=== PATIENT | female | born 1960 | race African-American/Black ===

== ENCOUNTER 2016-09-19 23:16 | Emergency (ER) | payer OTHER ==
[~2016-09-19] VITALS: Ht 154.9 cm; Wt 83.2 kg
[~2016-09-19 23:16] MED LIST: AUGMENTIN875TAB PO; CIPRO500 MG OR; FLAGYL500 MG OR; KEFLEX500 MG OR; LEVAQUIN750 MG OR; LORTAB 5 OR; MEDDOSEPAK OR; METRONIDAZOL500 MG PO; MONISTAT1 VA; NAPROSYN500 MG PO; NO MEDS; Robitussin AC OR; ULTRAM50 MG OR; ZITHROMAX250 MG PO
[2016-09-20 00:10] LABS: URINE BILIRUBIN - DIPSTICK NEGATIVE (NEGATIVE); URINE BLOOD DIPSTICK NEGATIVE (NEGATIVE); URINE CLARITY CLEAR; URINE COLOR YELLOW; URINE GLUCOSE - DIPSTICK NEGATIVE (NEGATIVE); URINE KETONE NEGATIVE (NEGATIVE); URINE LEUK ESTERASE NEGATIVE (NEGATIVE); URINE NITRITE - DIPSTICK NEGATIVE (Negative); URINE PROTEIN - DIPSTICK NEGATIVE (NEG-TRACE); URINE SPECIFIC GRAVITY <=1.005; URINE UROBILINOGEN - DIPSTICK 0.2 E.U./dL (0.2)
[2016-09-20 00:48] LABS: HEMATOCRIT 42.6 % (37.0-47.0); IMMATURE GRANULOCYTES 0.3 % (0.0-1.0); MEAN CELL VOLUME 77.7 fL CALC (80.0-100.0); MEAN CORPUSCULAR HGB 23.7 pG CALC (26.0-32.0); MEAN CORPUSCULAR HGB CONC 30.5 g/L CALC (32.0-36.0); NEUT# 7.22 thou/uL (2.00-7.15); RED BLOOD COUNT 5.48 mill/uL (4.20-5.60); RED CELL DISTRI WIDTH 14.1 % (11.5-15.5)
[2016-09-20 00:58] LABS: ALBUMIN 4.2 g/dL (3.2-5.0); ALKALINE PHOSPHATASE 101 u/l (38-126); ANION GAP 12 (6-22 (CALC)); BILIRUBIN, TOTAL 0.4 mg/dL (0.0-1.4); BUN 16 mg/dL (7-17); BUN/CREATININE RATIO 22 (12-20 (CALC)); CALCIUM 9.3 mg/dL (8.4-10.2); CARBON DIOXIDE 26 mmol/l (22-30); CHLORIDE 106 mmol/l (95-108); CREATININE 0.7 mg/dL (0.5-1.0); GFR > 60 ML/MIN (>=60 (CALC)); GFR FOR AFR.AMER. > 60 ML/MIN (>=60 (CALC)); GLUCOSE 121 mg/dL (65-105); POTASSIUM 4.1 mmol/l (3.5-5.1); SGOT/AST 16 u/l (14-36); SGPT/ALT 26 u/l (9-52); SODIUM 140 mmol/l (137-146); TOTAL PROTEIN 7.7 g/dL (6.3-8.2)
[2016-09-20 04:13] LABS: HEMOGLOBIN 11.4 g/dl (12.0-16.0); IMMATURE GRANULOCYTES 0.3 % (0.0-1.0); MEAN CELL VOLUME 78.8 fL CALC (80.0-100.0); MEAN CORPUSCULAR HGB 23.7 pG CALC (26.0-32.0); NEUT# 6.68 thou/uL (2.00-7.15); RED BLOOD COUNT 4.82 mill/uL (4.20-5.60); RED CELL DISTRI WIDTH 14.2 % (11.5-15.5)
[2016-09-20 07:43] VITALS: BP 120/67
== END 2016-09-20 07:43 | disposition home or self-care (01) | DRG 392 ==
LOC: ED 23:16
PROVIDERS: Emergency Medicine
DX: R10.9 Unspecified abdominal pain (principal); D72.829 Elevated white blood cell count, unspecified

== ENCOUNTER 2016-11-20 12:46 | Emergency (ER) | payer OTHER ==
[~2016-11-20] VITALS: Ht 154.9 cm; Wt 70.0 kg
[2016-11-20] MEDS ORDERED: NAPROSYN500 MG PO (14:11)
[2016-11-20 14:17] VITALS: BP 120/79
== END 2016-11-20 14:28 | disposition home or self-care (01) | DRG 556 ==
LOC: ED 12:46
DX: M79.672 Pain in left foot (principal); X50.1XXA Overexertion from prolonged static or awkward postures, initial encounter; Y93.89 Activity, other specified; Y92.89 Other specified places as the place of occurrence of the external cause

== ENCOUNTER 2017-02-06 01:39 | Inpatient (IN) | payer OTHER ==
[~2017-02-06] VITALS: Ht 154.9 cm; Wt 80.8 kg
[2017-02-06] MEDS ORDERED: ZOFRAN ODT4 MG PO ×2 (01:45→05:34)
[2017-02-06 02:02] LABS: HEMATOCRIT 43.2 % (37.0-47.0); HEMOGLOBIN 13.3 g/dl (12.0-16.0); IMMATURE GRANULOCYTES 0.6 % (0.0-1.0); MEAN CELL VOLUME 79.6 fL CALC (80.0-100.0); MEAN CORPUSCULAR HGB 24.5 pG CALC (26.0-32.0); MEAN CORPUSCULAR HGB CONC 30.8 g/L CALC (32.0-36.0); NEUT# 17.68 thou/uL (2.00-7.15); RED BLOOD COUNT 5.43 mill/uL (4.20-5.60)
[2017-02-06 02:25] LABS: ALBUMIN 4.4 g/dL (3.2-5.0); ALKALINE PHOSPHATASE 115 u/l (38-126); AMYLASE 85 u/l (30-110); ANION GAP 18 (6-22 (CALC)); BILIRUBIN, TOTAL 0.4 mg/dL (0.0-1.4); BUN 20 mg/dL (7-17); BUN/CREATININE RATIO 26 (12-20 (CALC)); CALCIUM 9.5 mg/dL (8.4-10.2); CARBON DIOXIDE 23 mmol/l (22-30); CHLORIDE 108 mmol/l (95-108); CREATININE 0.8 mg/dL (0.5-1.0); GFR > 60 ML/MIN (>=60 (CALC)); GFR FOR AFR.AMER. > 60 ML/MIN (>=60 (CALC)); GLUCOSE 185 mg/dL (65-105); LIPASE 130 u/l (23-300); POTASSIUM 4.8 mmol/l (3.5-5.1); SGOT/AST 21 u/l (14-36); SGPT/ALT 29 u/l (9-52); SODIUM 144 mmol/l (137-146); TOTAL PROTEIN 7.6 g/dL (6.3-8.2)
[2017-02-06 04:45] LABS: URINE BILIRUBIN - DIPSTICK NEGATIVE (NEGATIVE); URINE BLOOD DIPSTICK NEGATIVE (NEGATIVE); URINE COLOR YELLOW; URINE GLUCOSE - DIPSTICK NEGATIVE (NEGATIVE); URINE KETONE 15 mg/dL (NEGATIVE); URINE LEUK ESTERASE NEGATIVE (NEGATIVE); URINE NITRITE - DIPSTICK NEGATIVE (Negative); URINE PROTEIN - DIPSTICK NEGATIVE (NEG-TRACE); URINE UROBILINOGEN - DIPSTICK 0.2 E.U./dL (0.2)
[2017-02-06 05:20] LABS: URINE CLARITY CLEAR
[2017-02-06] MEDS ORDERED: CIPROFLOXACN500 MG PO (05:34)
[2017-02-06 11:10] VITALS: BP 109/61
[2017-02-06 12:35] LABS: BARBITURATES NEGATIVE (NEGATIVE); COCAINE NEGATIVE (NEGATIVE); METHADONE NEGATIVE (NEGATIVE); OXCYCODONE NEGATIVE (NEGATIVE); TETRAHYDROCANNABIONOL NEGATIVE (NEGATIVE); TRICYLIC ANTIDEPRESSANTS NEGATIVE (NEGATIVE)
[2017-02-06 16:30] VITALS: BP 114/60
[2017-02-06 19:07] VITALS: BP 120/73
[2017-02-06 23:55] VITALS: BP 123/71
[2017-02-06 23:58] LABS: C. DIFFICILE TOXIN A&B NEGATIVE (NEGATIVE)
[2017-02-07 04:28] VITALS: BP 123/69
[2017-02-07 06:21] LABS: HEMATOCRIT 36.3 % (37.0-47.0); HEMOGLOBIN 11.3 g/dl (12.0-16.0); IMMATURE GRANULOCYTES 0.2 % (0.0-1.0); MEAN CELL VOLUME 77.7 fL CALC (80.0-100.0); MEAN CORPUSCULAR HGB 24.2 pG CALC (26.0-32.0); MEAN CORPUSCULAR HGB CONC 31.1 g/L CALC (32.0-36.0); NEUT# 5.92 thou/uL (2.00-7.15); RED BLOOD COUNT 4.67 mill/uL (4.20-5.60)
[2017-02-07 06:24] LABS: ANION GAP 12 (6-22 (CALC)); BUN 9 mg/dL (7-17); BUN/CREATININE RATIO 14 (12-20 (CALC)); CALCIUM 8.4 mg/dL (8.4-10.2); CARBON DIOXIDE 25 mmol/l (22-30); CHLORIDE 110 mmol/l (95-108); CREATININE 0.7 mg/dL (0.5-1.0); GFR > 60 ML/MIN (>=60 (CALC)); GFR FOR AFR.AMER. > 60 ML/MIN (>=60 (CALC)); GLUCOSE 92 mg/dL (65-105); POTASSIUM 4.4 mmol/l (3.5-5.1); SODIUM 142 mmol/l (137-146)
[2017-02-07 07:30] VITALS: BP 133/84
[2017-02-07] MEDS ORDERED: METRONIDAZOL500 MG PO (09:58)
[2017-02-07] MEDS ORDERED: CIPROFLOXACN500 MG PO (09:58)
== END 2017-02-07 10:50 | disposition home or self-care (01) | DRG 872 ==
LOC: ED 01:39 → ED-I 09:54 → ED 10:11 → MS2 10:12
PROVIDERS: Emergency Medicine; ADMIT Internal Medicine; ATTEND Internal Medicine
DX: A41.9 Sepsis, unspecified organism (principal); E11.9 Type 2 diabetes mellitus without complications; K52.9 Noninfective gastroenteritis and colitis, unspecified; I10 Essential (primary) hypertension; F17.210 Nicotine dependence, cigarettes, uncomplicated
CPT/HCPCS: S0164

== ENCOUNTER 2017-02-12 15:59 | Emergency (ER) | payer SELFPAY ==
[~2017-02-12] VITALS: Ht 154.9 cm; Wt 80.0 kg
[~2017-02-12 15:59] MED LIST changes: +CIPROFLOXACN500 MG PO; +ZOFRAN ODT4 MG PO
[2017-02-12 16:51] LABS: HEMATOCRIT 41.8 % (37.0-47.0); HEMOGLOBIN 12.9 g/dl (12.0-16.0); IMMATURE GRANULOCYTES 0.4 % (0.0-1.0); MEAN CELL VOLUME 78.6 fL CALC (80.0-100.0); MEAN CORPUSCULAR HGB 24.2 pG CALC (26.0-32.0); MEAN CORPUSCULAR HGB CONC 30.9 g/L CALC (32.0-36.0); NEUT# 7.23 thou/uL (2.00-7.15); RED BLOOD COUNT 5.32 mill/uL (4.20-5.60); RED CELL DISTRI WIDTH 13.7 % (11.5-15.5)
[2017-02-12 17:08] LABS: ALBUMIN 4.5 g/dL (3.2-5.0); ALKALINE PHOSPHATASE 109 u/l (38-126); ANION GAP 18 (6-22 (CALC)); BILIRUBIN, TOTAL 0.2 mg/dL (0.0-1.4); BUN 17 mg/dL (7-17); BUN/CREATININE RATIO 20 (12-20 (CALC)); CALCIUM 9.4 mg/dL (8.4-10.2); CARBON DIOXIDE 24 mmol/l (22-30); CHLORIDE 105 mmol/l (95-108); CREATININE 0.9 mg/dL (0.5-1.0); GFR > 60 ML/MIN (>=60 (CALC)); GFR FOR AFR.AMER. > 60 ML/MIN (>=60 (CALC)); GLUCOSE 99 mg/dL (65-105); POTASSIUM 4.4 mmol/l (3.5-5.1); SGOT/AST 46 u/l (14-36); SGPT/ALT 73 u/l (9-52); SODIUM 142 mmol/l (137-146); TOTAL PROTEIN 7.9 g/dL (6.3-8.2)
[2017-02-12 17:20] LABS: MYOGLOBIN 30 ng/mL (0 - 62)
[2017-02-12 17:46] VITALS: BP 106/76
== END 2017-02-12 17:45 | disposition home or self-care (01) | DRG 149 ==
LOC: ED 15:59
PROVIDERS: Emergency Medicine
DX: R42 Dizziness and giddiness (principal); F17.210 Nicotine dependence, cigarettes, uncomplicated

== ENCOUNTER 2018-03-25 13:20 | Emergency (ER) | payer SELFPAY ==
[~2018-03-25] VITALS: Ht 154.9 cm; Wt 72.0 kg
[2018-03-25 14:43] LABS: HEMATOCRIT 45.6 % (37.0-47.0); HEMOGLOBIN 13.8 g/dl (12.0-16.0); IMMATURE GRANULOCYTES 0.3 % (0.0-5.0); MEAN CORPUSCULAR HGB 23.9 pG CALC (26.0-32.0); MEAN CORPUSCULAR HGB CONC 30.3 g/L CALC (32.0-36.0); NEUT# 6.07 thou/uL (2.00-7.15); RED BLOOD COUNT 5.77 mill/uL (4.20-5.60); RED CELL DISTRI WIDTH 14.5 % (11.5-15.5)
[2018-03-25 15:00] LABS: ALBUMIN 4.1 g/dL (3.2-5.0); ALKALINE PHOSPHATASE 100 u/l (38-126); ANION GAP 14 (6-22 (CALC)); BILIRUBIN, TOTAL 0.2 mg/dL (0.0-1.4); BUN 14 mg/dL (7-17); BUN/CREATININE RATIO 14 (12-20 (CALC)); CARBON DIOXIDE 28 mmol/l (22-30); CHLORIDE 106 mmol/l (95-108); GFR 57 ML/MIN (>=60 (CALC)); GFR FOR AFR.AMER. > 60 ML/MIN (>=60 (CALC)); POTASSIUM 4.2 mmol/l (3.5-5.1); SGOT/AST 18 u/l (14-36); SODIUM 143 mmol/l (137-146); TOTAL PROTEIN 7.2 g/dL (6.3-8.2)
[2018-03-25] MEDS ORDERED: AMOXICILLIN500 MG PO (15:56)
[2018-03-25] MEDS ORDERED: DELTASONE20 MG PO (15:56)
[2018-03-25] MEDS ORDERED: TORADOL PO (15:56)
[2018-03-25 16:04] VITALS: BP 156/97
== END 2018-03-25 16:12 | disposition home or self-care (01) | DRG 153 ==
LOC: ED 13:20
PROVIDERS: Emergency Medicine
DX: J02.9 Acute pharyngitis, unspecified (principal); F17.210 Nicotine dependence, cigarettes, uncomplicated
CPT/HCPCS: Q9967

== ENCOUNTER 2018-05-30 22:13 | Emergency (ER) | payer SELFPAY ==
[~2018-05-30] VITALS: Ht 154.9 cm; Wt 77.2 kg
[~2018-05-30 22:13] MED LIST changes: +AMOXICILLIN500 MG PO; +DELTASONE20 MG PO; +TORADOL PO
[2018-05-30 22:55] LABS: GFR > 60 ML/MIN (>=60 (CALC)); GFR FOR AFR.AMER. > 60 ML/MIN (>=60 (CALC))
[2018-05-30 22:57] LABS: HEMOGLOBIN 12.4 g/dl (12.0-16.0); IMMATURE GRANULOCYTES 0.4 % (0.0-5.0); MEAN CELL VOLUME 78.1 fL CALC (80.0-100.0); MEAN CORPUSCULAR HGB 23.6 pG CALC (26.0-32.0); MEAN CORPUSCULAR HGB CONC 30.2 g/L CALC (32.0-36.0); NEUT# 11.14 thou/uL (2.00-7.15); RED BLOOD COUNT 5.25 mill/uL (4.20-5.60); RED CELL DISTRI WIDTH 14.5 % (11.5-15.5)
[2018-05-30 23:13] LABS: ALBUMIN 4.4 g/dL (3.2-5.0); ALKALINE PHOSPHATASE 110 u/l (38-126); ANION GAP 13 (6-22 (CALC)); BILIRUBIN, TOTAL 0.4 mg/dL (0.0-1.4); BUN 12 mg/dL (7-17); BUN/CREATININE RATIO 14 (12-20 (CALC)); CARBON DIOXIDE 27 mmol/l (22-30); CHLORIDE 106 mmol/l (95-108); CREATININE 0.8 mg/dL (0.5-1.0); GFR > 60 ML/MIN (>=60 (CALC)); GFR FOR AFR.AMER. > 60 ML/MIN (>=60 (CALC)); POTASSIUM 3.9 mmol/l (3.5-5.1); SGOT/AST 25 u/l (14-36); SODIUM 143 mmol/l (137-146); TOTAL PROTEIN 8.1 g/dL (6.3-8.2)
[2018-05-30 23:14] LABS: ACT PARTIAL THROMBO TIME 24.3 SECONDS (20.0-32.5); INTERNATIONAL NORMALIZED RATIO 0.9 RATIO (0.7-1.3); PROTHROMBIN TIME 9.8 SECONDS (9.0-12.5)
[2018-05-30 23:25] LABS: MYOGLOBIN 29 ng/mL (0 - 62)
[2018-05-31 00:17] LABS: URINE BILIRUBIN - DIPSTICK NEGATIVE (NEGATIVE); URINE BLOOD DIPSTICK NEGATIVE (NEGATIVE); URINE COLOR YELLOW; URINE GLUCOSE - DIPSTICK NEGATIVE (NEGATIVE); URINE KETONE NEGATIVE (NEGATIVE); URINE LEUK ESTERASE NEGATIVE (NEGATIVE); URINE NITRITE - DIPSTICK NEGATIVE (Negative); URINE PH 6.5 (4.5-8.0); URINE PROTEIN - DIPSTICK NEGATIVE (NEG-TRACE); URINE UROBILINOGEN - DIPSTICK 0.2 E.U./dL (0.2)
[2018-05-31 00:22] LABS: BARBITURATES NEGATIVE (NEGATIVE); COCAINE POSITIVE (NEGATIVE); METHADONE NEGATIVE (NEGATIVE); OXCYCODONE NEGATIVE (NEGATIVE); TRICYLIC ANTIDEPRESSANTS NEGATIVE (NEGATIVE)
[2018-05-31 00:23] LABS: TETRAHYDROCANNABIONOL NEGATIVE (NEGATIVE)
[2018-05-31 00:51] VITALS: BP 156/71
== END 2018-05-31 00:50 | disposition left against medical advice (07) | DRG 93 ==
LOC: ED 22:13
PROVIDERS: Emergency Medicine
DX: R20.0 Anesthesia of skin (principal); I10 Essential (primary) hypertension; F14.10 Cocaine abuse, uncomplicated; F17.210 Nicotine dependence, cigarettes, uncomplicated; Z91.19 Patient's noncompliance with other medical treatment and regimen

== ENCOUNTER 2018-09-21 14:43 | Emergency (ER) | payer SELFPAY ==
[~2018-09-21] VITALS: Ht 154.9 cm; Wt 70.0 kg
[2018-09-21 15:07] LABS: URINE BLOOD DIPSTICK NEGATIVE (NEGATIVE); URINE COLOR YELLOW; URINE GLUCOSE - DIPSTICK NEGATIVE (NEGATIVE); URINE KETONE NEGATIVE (NEGATIVE); URINE LEUK ESTERASE NEGATIVE (NEGATIVE); URINE NITRITE - DIPSTICK NEGATIVE (Negative); URINE PROTEIN - DIPSTICK 30 mg/dL (NEG-TRACE); URINE SPECIFIC GRAVITY >=1.030; URINE UROBILINOGEN - DIPSTICK 0.2 E.U./dL (0.2)
[2018-09-21 15:14] LABS: URINE BILIRUBIN - DIPSTICK NEGATIVE (NEGATIVE)
[2018-09-21 15:17] LABS: URINE RBC 0-2 RBC/hpf (0-5); URINE SQUAMOUS EPITHELIAL CELL FEW EPI/hpf (0-FEW)
[2018-09-21] MEDS ORDERED: PYRIDIUM200 MG PO (15:46)
[2018-09-21] MEDS ORDERED: DIFLUCAN100 M1 PO (15:46)
[2018-09-21] MEDS ORDERED: CIPROFLOXACN500 MG PO (15:46)
[2018-09-21 15:50] VITALS: BP 137/74
== END 2018-09-21 15:53 | disposition home or self-care (01) | DRG 690 ==
LOC: ED 14:43
DX: N39.0 Urinary tract infection, site not specified (principal); B37.49 Other urogenital candidiasis; F17.200 Nicotine dependence, unspecified, uncomplicated

== ENCOUNTER 2019-11-11 18:01 | Emergency (ER) | payer OTHER ==
[~2019-11-11] VITALS: Ht 154.9 cm; Wt 74.0 kg
[~2019-11-11 18:01] MED LIST changes: +DIFLUCAN100 M1 PO; +PYRIDIUM200 MG PO
[2019-11-11 18:53] LABS: HEMOGLOBIN 12.5 g/dl (12.0-16.0); IMMATURE GRANULOCYTES 0.2 % (0.0-5.0); MEAN CELL VOLUME 78.8 fL CALC (80.0-100.0); MEAN CORPUSCULAR HGB 23.5 pG CALC (26.0-32.0); MEAN CORPUSCULAR HGB CONC 29.8 g/dL CAL (32.0-36.0); NEUT# 6.69 thou/uL (2.00-7.15); RED BLOOD COUNT 5.33 mill/uL (4.20-5.60); RED CELL DISTRI WIDTH 14.5 % (11.5-15.5)
[2019-11-11 19:09] LABS: URINE BILIRUBIN - DIPSTICK NEGATIVE (NEGATIVE); URINE BLOOD DIPSTICK NEGATIVE (NEGATIVE); URINE COLOR YELLOW; URINE GLUCOSE - DIPSTICK NEGATIVE (NEGATIVE); URINE KETONE NEGATIVE (NEGATIVE); URINE LEUK ESTERASE NEGATIVE (NEGATIVE); URINE NITRITE - DIPSTICK NEGATIVE (Negative); URINE PH 5.5 (4.5-8.0); URINE PROTEIN - DIPSTICK NEGATIVE (NEG-TRACE); URINE SPECIFIC GRAVITY >=1.030; URINE UROBILINOGEN - DIPSTICK 0.2 E.U./dL (0.2)
[2019-11-11 19:10] LABS: ALBUMIN 3.9 g/dL (3.2-5.0); ALKALINE PHOSPHATASE 115 u/l (38-126); ANION GAP 12 (6-22 (CALC)); BILIRUBIN, TOTAL 0.3 mg/dL (0.0-1.4); BUN 11 mg/dL (7-17); BUN/CREATININE RATIO 18 (12-20 (CALC)); CARBON DIOXIDE 25 mmol/l (22-30); CHLORIDE 106 mmol/l (95-108); CREATININE 0.6 mg/dL (0.5-1.0); GFR > 60 ML/MIN (>=60 (CALC)); GFR FOR AFR.AMER. > 60 ML/MIN (>=60 (CALC)); POTASSIUM 4.5 mmol/l (3.5-5.1); SGOT/AST 22 u/l (14-36); SODIUM 138 mmol/l (137-146); TOTAL PROTEIN 7.1 g/dL (6.3-8.2)
[2019-11-11 19:22] LABS: MYOGLOBIN 15 ng/mL (0 - 62)
[2019-11-11 20:00] VITALS: BP 155/72
== END 2019-11-11 20:40 | disposition home or self-care (01) ==
LOC: ED 18:01
PROVIDERS: Emergency Medicine
DX: R42 Dizziness and giddiness (principal); F17.200 Nicotine dependence, unspecified, uncomplicated; F12.10 Cannabis abuse, uncomplicated

== ENCOUNTER 2021-04-30 10:45 | Emergency (ER) | payer MEDICAID ==
[~2021-04-30] VITALS: Ht 154.9 cm; Wt 73.0 kg
[2021-04-30 10:55] VITALS: BP 147/73
[2021-04-30 11:00] VITALS: BP 134/68
[2021-04-30] MEDS ORDERED: NORVASC5 M1 PO (11:10)
[2021-04-30] MEDS ORDERED: PAIN MED (11:11)
[2021-04-30 11:23] VITALS: BP 129/76
[2021-04-30 11:30] VITALS: BP 131/68
[2021-04-30 12:02] LABS: URINE BILIRUBIN - DIPSTICK NEGATIVE (NEGATIVE); URINE BLOOD DIPSTICK NEGATIVE (NEGATIVE); URINE COLOR YELLOW; URINE GLUCOSE - DIPSTICK NEGATIVE (NEGATIVE); URINE KETONE NEGATIVE (NEGATIVE); URINE LEUK ESTERASE NEGATIVE (NEGATIVE); URINE PH 5.5 (4.5-8.0); URINE PROTEIN - DIPSTICK NEGATIVE (NEG-TRACE); URINE SPECIFIC GRAVITY 1.025; URINE UROBILINOGEN - DIPSTICK 0.2 E.U./dL (0.2)
[2021-04-30 12:03] LABS: URINE NITRITE - DIPSTICK NEGATIVE (Negative)
[2021-04-30] MEDS ORDERED: DOXYCYCL HYC100 M4 PO (12:24)
[2021-04-30] MEDS ORDERED: METRONIDAZOLE500 MG PO (12:24)
[2021-04-30 12:57] VITALS: BP 131/68
[2021-04-30] MEDS ORDERED: METOPROLOL TART50 MG PO (13:24)
== END 2021-04-30 13:18 | disposition home or self-care (01) ==
LOC: ED 10:45
PROVIDERS: Family Medicine
DX: A59.01 Trichomonal vulvovaginitis (principal); I10 Essential (primary) hypertension; F17.200 Nicotine dependence, unspecified, uncomplicated
CPT/HCPCS: J0561

== ENCOUNTER 2021-05-11 01:52 | Emergency (ER) | payer MEDICAID ==
[~2021-05-11] VITALS: Ht 154.9 cm; Wt 72.0 kg
[~2021-05-11 01:52] MED LIST changes: +DOXYCYCL HYC100 M4 PO; +METOPROLOL TART50 MG PO; +METRONIDAZOLE500 MG PO; +NORVASC5 M1 PO; +PAIN MED
[2021-05-11 02:01] VITALS: BP 134/73
[2021-05-11 02:29] LABS: HEMATOCRIT 42.5 % (37.0-47.0); HEMOGLOBIN 12.9 g/dl (12.0-16.0); IMMATURE GRANULOCYTES 0.6 % (0.0-5.0); MEAN CELL VOLUME 79.3 fL CALC (80.0-100.0); MEAN CORPUSCULAR HGB 24.1 pG CALC (26.0-32.0); MEAN CORPUSCULAR HGB CONC 30.4 g/dL CAL (32.0-36.0); NEUT# 8.13 thou/uL (2.00-7.15); RED BLOOD COUNT 5.36 mill/uL (4.20-5.60); RED CELL DISTRI WIDTH 14.2 % (11.5-15.5)
[2021-05-11 02:48] LABS: ALBUMIN 3.6 g/dL (3.2-5.0); ALKALINE PHOSPHATASE 114 u/l (38-126); AMYLASE 116 u/l (30-110); ANION GAP 9 (6-22 (CALC)); BILIRUBIN, TOTAL 0.2 mg/dL (0.0-1.4); BUN 13 mg/dL (7-17); BUN/CREATININE RATIO 19 (12-20 (CALC)); CARBON DIOXIDE 27 mmol/l (22-30); CHLORIDE 108 mmol/l (95-108); CREATININE 0.7 mg/dL (0.5-1.0); GFR > 60 ML/MIN (>=60 (CALC)); GFR FOR AFR.AMER. > 60 ML/MIN (>=60 (CALC)); LIPASE 179 u/l (23-300); POTASSIUM 4.1 mmol/l (3.5-5.1); SGOT/AST 22 u/l (14-36); SODIUM 140 mmol/l (137-146); TOTAL PROTEIN 6.9 g/dL (6.3-8.2)
[2021-05-11 03:21] LABS: URINE BILIRUBIN - DIPSTICK NEGATIVE (NEGATIVE); URINE BLOOD DIPSTICK NEGATIVE (NEGATIVE); URINE COLOR YELLOW; URINE GLUCOSE - DIPSTICK NEGATIVE (NEGATIVE); URINE KETONE NEGATIVE (NEGATIVE); URINE LEUK ESTERASE NEGATIVE (NEGATIVE); URINE PROTEIN - DIPSTICK NEGATIVE (NEG-TRACE); URINE SPECIFIC GRAVITY 1.025; URINE UROBILINOGEN - DIPSTICK 0.2 E.U./dL (0.2)
[2021-05-11 03:22] LABS: URINE NITRITE - DIPSTICK NEGATIVE (Negative)
[2021-05-11] MEDS ORDERED: BACTRIM DS1 TAB PO (04:19)
[2021-05-11] MEDS ORDERED: NAPROXEN500 MG PO (04:19)
[2021-05-11] MEDS ORDERED: CYCLOBENZAPRINE10 MG PO (04:19)
[2021-05-11 04:31] VITALS: BP 134/73
== END 2021-05-11 04:39 | disposition home or self-care (01) ==
LOC: ED 01:52
PROVIDERS: Emergency Medicine
DX: S33.5XXA Sprain of ligaments of lumbar spine, initial encounter (principal); D72.829 Elevated white blood cell count, unspecified; I10 Essential (primary) hypertension; F17.200 Nicotine dependence, unspecified, uncomplicated; X50.0XXA Overexertion from strenuous movement or load, initial encounter; Y93.H9 Activity, other involving exterior property and land maintenance, building and construction; Z20.822 Contact with and (suspected) exposure to COVID-19

== ENCOUNTER 2021-05-21 11:07 | Emergency (ER) | payer MEDICAID ==
[~2021-05-21] VITALS: Ht 154.9 cm; Wt 73.0 kg
[~2021-05-21 11:07] MED LIST changes: +BACTRIM DS1 TAB PO; +CYCLOBENZAPRINE10 MG PO; +NAPROXEN500 MG PO
[2021-05-21 11:36] VITALS: BP 129/81
[2021-05-21 11:45] VITALS: BP 111/78
[2021-05-21 12:00] VITALS: BP 112/73
[2021-05-21] MEDS ORDERED: VISTARIL25 MG PO (12:02)
[2021-05-21] MEDS ORDERED: OMNI-PAC300 MG PO (12:02)
[2021-05-21] MEDS ORDERED: BENADRYL25 M1 PO (12:02)
[2021-05-21] MEDS ORDERED: PREDNISONE20 MG PO (12:02)
== END 2021-05-21 13:35 | disposition home or self-care (01) ==
LOC: ED 11:07
DX: L50.9 Urticaria, unspecified (principal); I10 Essential (primary) hypertension; F17.200 Nicotine dependence, unspecified, uncomplicated

== ENCOUNTER 2022-06-10 10:21 | Emergency (ER) | payer MEDICAID ==
[~2022-06-10] VITALS: Ht 154.9 cm; Wt 71.4 kg
[~2022-06-10 10:21] MED LIST changes: +BENADRYL25 M1 PO; +OMNI-PAC300 MG PO; +PREDNISONE20 MG PO; +VISTARIL25 MG PO
[2022-06-10 10:56] VITALS: BP 121/68
[2022-06-10] MEDS ORDERED: MEDDOSEPAK PO (15:00)
[2022-06-10] MEDS ORDERED: NAPROXEN500 MG PO (15:00)
[2022-06-10] MEDS ORDERED: METHOCARBAMOL500 MG PO (15:00)
== END 2022-06-10 10:56 | disposition left against medical advice (07) | DRG 951 ==
LOC: ED 10:21 → LWOBS 10:56
DX: Z53.21 Procedure and treatment not carried out due to patient leaving prior to being seen by health care provider (principal)

== ENCOUNTER 2022-06-10 13:14 | Emergency (ER) | payer MEDICAID ==
[~2022-06-10] VITALS: Ht 154.9 cm; Wt 71.0 kg
[2022-06-10 13:21] VITALS: BP 135/77
[2022-06-10 13:31] VITALS: BP 106/80
[2022-06-10 14:13] LABS: URINE BILIRUBIN - DIPSTICK NEGATIVE (NEGATIVE); URINE BLOOD DIPSTICK NEGATIVE (NEGATIVE); URINE COLOR YELLOW; URINE GLUCOSE - DIPSTICK NEGATIVE (NEGATIVE); URINE KETONE NEGATIVE (NEGATIVE); URINE LEUK ESTERASE NEGATIVE (NEGATIVE); URINE PH 5.5 (4.5-8.0); URINE PROTEIN - DIPSTICK NEGATIVE (NEG-TRACE); URINE SPECIFIC GRAVITY >=1.030; URINE UROBILINOGEN - DIPSTICK 0.2 E.U./dL (0.2)
[2022-06-10 14:14] LABS: URINE NITRITE - DIPSTICK NEGATIVE (Negative)
[2022-06-10] MEDS ORDERED: NAPROXEN500 MG PO (15:00)
[2022-06-10] MEDS ORDERED: MEDDOSEPAK PO (15:00)
[2022-06-10] MEDS ORDERED: METHOCARBAMOL500 MG PO (15:00)
[2022-06-10 15:11] VITALS: BP 106/80
== END 2022-06-10 15:20 | disposition home or self-care (01) ==
LOC: ED 13:14
PROVIDERS: Nurse Practitioner
DX: S33.5XXA Sprain of ligaments of lumbar spine, initial encounter (principal); I10 Essential (primary) hypertension; F17.200 Nicotine dependence, unspecified, uncomplicated; X50.0XXA Overexertion from strenuous movement or load, initial encounter; I11.9 Hypertensive heart disease without heart failure; E78.00 Pure hypercholesterolemia, unspecified; J44.9 Chronic obstructive pulmonary disease, unspecified; I25.10 Atherosclerotic heart disease of native coronary artery without angina pectoris

== ENCOUNTER 2024-04-05 20:38 | Emergency (ER) | payer SELFPAY ==
[~2024-04-05] VITALS: Ht 154.9 cm; Wt 70.0 kg
[~2024-04-05 20:38] MED LIST changes: +MEDDOSEPAK PO; +METHOCARBAMOL500 MG PO; +MOTRIN800 MG PO
[2024-04-05 20:44] VITALS: BP 122/64
[2024-04-05 21:00] VITALS: BP 122/54
[2024-04-05 21:16] VITALS: BP 134/68
[2024-04-05 21:30] VITALS: BP 137/70
[2024-04-05 22:16] LABS: BASO% 0.3 % (0-3); HEMATOCRIT 39.8 % (37.0-47.0); HEMOGLOBIN 12.3 g/dl (12.0-16.0); IMMATURE GRANULOCYTES 0.2 % (0.0-5.0); LYMPH% 32.6 % (15-41); MEAN CELL VOLUME 79.1 fL CALC (80.0-100.0); MEAN CORPUSCULAR HGB 24.5 pG CALC (26.0-32.0); MEAN CORPUSCULAR HGB CONC 30.9 g/dL CAL (32.0-36.0); MONO% 10.5 % (2-13); NEUT# 7.23 thou/uL (2.00-7.15); NEUT% 55.4 % (42-76); RED BLOOD COUNT 5.03 mill/uL (4.20-5.60); RED CELL DISTRI WIDTH 14.1 % (11.5-15.5)
[2024-04-05 22:33] LABS: ALBUMIN 3.7 g/dL (3.2-5.0); ALKALINE PHOSPHATASE 96 u/l (38-126); ANION GAP 8 (6-22 (CALC)); BILIRUBIN, TOTAL 0.3 mg/dL (0.02-1.3); BUN 14 mg/dL (8-23); BUN/CREATININE RATIO 15 (12-20 (CALC)); CARBON DIOXIDE 27 mmol/l (22-30); CHLORIDE 109 mmol/l (95-108); CPK 62 u/l (30-135); CREATININE 0.9 mg/dL (0.5-1.0); ESTIMATED GFR 72 ML/MIN (>=90 (CALC)); POTASSIUM 3.7 mmol/l (3.5-5.1); SGOT/AST 23 u/l (9-36); SODIUM 140 mmol/l (137-146)
[2024-04-05 23:34] VITALS: BP 137/70
== END 2024-04-05 23:35 | disposition home or self-care (01) | DRG 948 ==
LOC: ED 20:38
PROVIDERS: Family Medicine
DX: R53.1 Weakness (principal); I10 Essential (primary) hypertension; F17.200 Nicotine dependence, unspecified, uncomplicated

== ENCOUNTER 2024-04-17 12:44 | Observation (INO) | payer SELFPAY ==
[~2024-04-17] VITALS: Ht 154.9 cm; Wt 75.0 kg
[2024-04-17 13:20] LABS: BASO% 0.2 % (0-3); HEMATOCRIT 44.6 % (37.0-47.0); HEMOGLOBIN 13.6 g/dl (12.0-16.0); IMMATURE GRANULOCYTES 0.1 % (0.0-5.0); LYMPH% 26.9 % (15-41); MEAN CELL VOLUME 79.4 fL CALC (80.0-100.0); MEAN CORPUSCULAR HGB 24.2 pG CALC (26.0-32.0); MEAN CORPUSCULAR HGB CONC 30.5 g/dL CAL (32.0-36.0); MONO% 8.5 % (2-13); NEUT# 7.86 thou/uL (2.00-7.15); NEUT% 63.3 % (42-76); RED BLOOD COUNT 5.62 mill/uL (4.20-5.60); RED CELL DISTRI WIDTH 13.9 % (11.5-15.5)
[2024-04-17 13:33] LABS: ALBUMIN 4.2 g/dL (3.2-5.0); ALKALINE PHOSPHATASE 103 u/l (38-126); BUN 12 mg/dL (8-23); BUN/CREATININE RATIO 17 (12-20 (CALC)); CALCULATED LDLCHOLESTEROL 179 mg/dL (62-129 (CALC)); CARBON DIOXIDE 27 mmol/l (22-30); CHLORIDE 106 mmol/l (95-108); CHOLESTEROL HDL RATIO 5.2 (<4.4 (CALC)); CREATININE 0.7 mg/dL (0.5-1.0); ESTIMATED GFR 97 ML/MIN (>=90 (CALC)); HDL CHOLESTEROL 47 mg/dL (39.0-59.0); SGOT/AST 26 u/l (9-36); SODIUM 140 mmol/l (137-146); TOTAL CHOLESTEROL 245 mg/dl (0-199); TOTAL PROTEIN 7.5 g/dL (6.3-8.2); TOTAL TRIGLYCERIDES 96 mg/dl (0-149); VLDL CHOLESTROL 19 mg/dl (1-41 (CALC))
[2024-04-17 13:34] LABS: ANION GAP 12 (6-22 (CALC)); BILIRUBIN, TOTAL 0.5 mg/dL (0.02-1.3); POTASSIUM 4.5 mmol/l (3.5-5.1)
[2024-04-17 13:35] LABS: INTERNATIONAL NORMALIZED RATIO 0.9 RATIO (0.7-1.3)
[2024-04-17] MEDS ORDERED: DiphenhydrAMINE HCL 50 MG/ML SDV IV ONE (13:45)
[2024-04-17] MEDS ORDERED: METOCLOPRAMIDE HCL 10 MG/2 ML SDV IV ONE (13:45)
[2024-04-17 13:48] LABS: PROTHROMBIN TIME 10.2 SECONDS (9.0-12.5)
[2024-04-17 14:15] LABS: URINE BILIRUBIN - DIPSTICK Negative (NEGATIVE); URINE BLOOD DIPSTICK Negative (NEGATIVE); URINE GLUCOSE - DIPSTICK Negative (NEGATIVE); URINE KETONE Negative (NEGATIVE); URINE LEUK ESTERASE Negative (NEGATIVE); URINE NITRITE - DIPSTICK Negative (Negative); URINE PROTEIN - DIPSTICK Negative (NEG-TRACE); URINE UROBILINOGEN - DIPSTICK 0.2 E.U./dL (0.2)
[2024-04-17 14:20] LABS: URINE COLOR Yellow
[2024-04-17] MEDS ORDERED: ACETAMINOPHEN 325 MG/TAB PO PRN (15:45)
[2024-04-17] MEDS ORDERED: ONDANSETRON 4 MG/TAB ODT SL PRN (15:45)
[2024-04-17] MEDS ORDERED: SODIUM CHLORIDE 0.9% 1,000 ML IV PRN (15:45)
[2024-04-17] MEDS ORDERED: Polyethylene Glycol 3350 17 GM/PKT PO PRN (15:45)
[2024-04-17] MEDS ORDERED: ACETYL SALICYLIC ACI XX (16:50)
[2024-04-17] MEDS ORDERED: INSULIN LISPRO 100 UNITS/ML ML SC SCH (17:00)
[2024-04-17 17:19] VITALS: BP 152/76
[2024-04-17] MEDS ORDERED: ENOXAPARIN SODIUM 40 MG/0.4 ML SYR SC SCH (21:00)
[2024-04-17] MEDS ORDERED: ATORVASTATIN CALCIUM 40 MG/TAB PO SCH (21:00)
[2024-04-18] MEDS ORDERED: ASPIRIN 81 MG/TAB PO SCH (09:00)
== END 2024-04-17 17:30 | disposition left against medical advice (07) | DRG 93 ==
LOC: ED 12:44 → ED-I 15:20 → ED 15:36 → MS2 15:37
PROVIDERS: Emergency Medicine; ADMIT Internal Medicine; ATTEND Internal Medicine
DX: R29.810 Facial weakness (principal); R51.9 Headache, unspecified; R47.81 Slurred speech; I65.23 Occlusion and stenosis of bilateral carotid arteries; I10 Essential (primary) hypertension; F17.200 Nicotine dependence, unspecified, uncomplicated
CPT/HCPCS: J1100; J1200; J2765; Q9967

== ENCOUNTER 2024-04-29 13:13 | Emergency (ER) | payer SELFPAY ==
[~2024-04-29] VITALS: Ht 154.9 cm; Wt 64.0 kg
[~2024-04-29 13:13] MED LIST changes: +ACETYL SALICYLIC ACI XX
[2024-04-29 13:42] VITALS: BP 124/61
== END 2024-04-29 13:48 | disposition home or self-care (01) | DRG 951 ==
LOC: ED 13:13
DX: Z48.01 Encounter for change or removal of surgical wound dressing (principal); I10 Essential (primary) hypertension; F17.200 Nicotine dependence, unspecified, uncomplicated; Z98.890 Other specified postprocedural states

== ENCOUNTER 2024-05-04 06:01 | Emergency (ER) | payer SELFPAY ==
[~2024-05-04] VITALS: Ht 154.9 cm; Wt 68.0 kg
[2024-05-04 06:10] VITALS: BP 135/85
[2024-05-04 06:24] VITALS: BP 135/85
== END 2024-05-04 06:25 | disposition home or self-care (01) | DRG 921 ==
LOC: ED 06:01
PROC: 0HQ4XZZ Repair Neck Skin, External Approach (ICD-10-PCS; principal; 2024-05-04)
DX: T81.31XA Disruption of external operation (surgical) wound, not elsewhere classified, initial encounter (principal); I10 Essential (primary) hypertension; F17.200 Nicotine dependence, unspecified, uncomplicated; Y83.8 Other surgical procedures as the cause of abnormal reaction of the patient, or of later complication, without mention of misadventure at the time of the procedure

== ENCOUNTER 2024-05-11 10:00 | Emergency (ER) | payer SELFPAY ==
[2024-05-11] VITALS (13 sets, daily range): BP systolic 99–185; BP diastolic 40–87
[~2024-05-11] VITALS: Ht 154.9 cm; Wt 63.3 kg
[2024-05-11] MEDS ORDERED: ONDANSETRON HCl 4 MG/2 ML SDV IV ONE (10:20)
[2024-05-11] MEDS ORDERED: SODIUM CHLORIDE 0.9% 1,000 ML IV ONE (10:20)
[2024-05-11] MEDS ORDERED: ISOVUE-300 (Iopamidol) 100 ML SDV IV ONE (10:20)
[2024-05-11] MEDS ORDERED: DIPHENOXYLATE W/ ATROPINE 2.5 MG TAB PO ONE (10:20)
[2024-05-11 10:57] LABS: BASO% 0.1 % (0-3); EOS% 0.1 % (0-8); HEMATOCRIT 40.5 % (37.0-47.0); HEMOGLOBIN 12.4 g/dl (12.0-16.0); IMMATURE GRANULOCYTES 0.2 % (0.0-5.0); LYMPH% 6.9 % (15-41); MEAN CELL VOLUME 78.8 fL CALC (80.0-100.0); MEAN CORPUSCULAR HGB 24.1 pG CALC (26.0-32.0); MEAN CORPUSCULAR HGB CONC 30.6 g/dL CAL (32.0-36.0); MONO% 3.6 % (2-13); NEUT# 16.12 thou/uL (2.00-7.15); NEUT% 89.1 % (42-76); RED BLOOD COUNT 5.14 mill/uL (4.20-5.60); RED CELL DISTRI WIDTH 13.3 % (11.5-15.5)
[2024-05-11 11:17] LABS: ALBUMIN 4.1 g/dL (3.2-5.0); BILIRUBIN, TOTAL 0.6 mg/dL (0.02-1.3); CREATININE 0.7 mg/dL (0.5-1.0); POTASSIUM 4.4 mmol/l (3.5-5.1); TOTAL PROTEIN 7.5 g/dL (6.3-8.2)
[2024-05-11] MEDS ORDERED: ONDANSETRON4 MG PO (14:26)
[2024-05-11 14:29] LABS: URINE BILIRUBIN - DIPSTICK Negative (NEGATIVE); URINE BLOOD DIPSTICK Negative (NEGATIVE); URINE GLUCOSE - DIPSTICK Negative (NEGATIVE); URINE KETONE Negative (NEGATIVE); URINE LEUK ESTERASE Negative (NEGATIVE); URINE NITRITE - DIPSTICK Negative (Negative); URINE PROTEIN - DIPSTICK Negative (NEG-TRACE); URINE UROBILINOGEN - DIPSTICK 0.2 E.U./dL (0.2)
[2024-05-11 14:30] LABS: URINE COLOR Yellow
== END 2024-05-11 15:02 | disposition home or self-care (01) | DRG 392 ==
LOC: ED 10:00
PROVIDERS: Family Medicine
DX: K52.9 Noninfective gastroenteritis and colitis, unspecified (principal); I10 Essential (primary) hypertension; Z72.0 Tobacco use
CPT/HCPCS: J2405; Q9967